=== PATIENT | male | born 1990 | race Caucasian/White ===

== ENCOUNTER 2021-03-18 22:57 | Emergency (ER) | payer OTHER, SELFPAY ==
[2021-03-18 23:01] VITALS: BP 142/69; PULSE 84; RESP 14; TEMP 36.3; O2SAT 100
[2021-03-19 01:56] VITALS: BP 126/79; PULSE 68; RESP 16; O2SAT 100
--- NOTE | 2021-03-19 02:46 | ED.GENADULT ---
HPI - General Adult General Chief complaint: Skin/Abscess/Foreign Body Stated complaint: suture removal, possible infection Time Seen by Provider: 03/19/21 02:17 History of Present Illness HPI narrative: Patient 30-year-old gentleman who presents the emergency department with chief complaint of redness to bilateral lower extremities. The patient reports he had a biopsy done by dermatology and the wounds were closed with a mattress type suture. Patient states that has noticed some redness around the sites and noticed that they have become infected. Patient also states that has been unable to have the sutures removed Related Data Allergies Allergy/AdvReac Type Severity Reaction Status Date / Time No Known Allergies Allergy Verified 03/19/21 01:55 Review of Systems Review of Systems: A 10 system review of systems was completed on the patient and is negative except for what is stated in the HPI. Nursing and ancillary documentation was reviewed. Exam Narrative: GENERAL: Well-appearing, well-nourished, and in no acute distress. HEAD: Normocephalic, atraumatic. EYES: PERRLA and EOMI. ENT: Nares clear, no rhinorrhea or epistaxis. Mucous membranes moist. NECK: Supple. CHEST: Clear to auscultation. No respiratory distress. HEART: Regular rate and rhythm. No murmur heard. Normal peripheral pulses. ABDOMEN: Soft, nontender, nondistended, normal active bowel sounds. EXTREMITIES: Normal range of motion. No edema. SKIN: Warm, dry, no rash. There is an area of erythema of pulse lower extremities approximately silver dollar size around the area of the biopsies. There is no purulent drainage sutures were still intact. Sutures were removed using a pair of scissors NEURO: No focal deficits. Alert and oriented x3. PSYCH: Normal mood and affect. Course Vital Signs Vital signs: Vital Signs Temperature 36.3 C L 03/18/21 23:01 Pulse Rate 84 03/18/21 23:01 Respiratory Rate 14 03/18/21 23:01 Blood Pressure 142/69 H 03/18/21 23:01 Pulse Oximetry 100 03/18/21 23:01 Temperature 36.3 C L 03/18/21 23:01 Pulse Rate 68 03/19/21 01:56 Respiratory Rate 16 03/19/21 01:56 Blood Pressure 126/79 03/19/21 01:56 Pulse Oximetry 100 03/19/21 01:56 Medical Decision Making Vital Signs Vital Signs: Vital Signs Temperature 36.3 C L 03/18/21 23:01 Pulse Rate 84 03/18/21 23:01 Respiratory Rate 14 03/18/21 23:01 Blood Pressure 142/69 H 03/18/21 23:01 Pulse Oximetry 100 03/18/21 23:01 Temperature 36.3 C L 03/18/21 23:01 Pulse Rate 68 03/19/21 01:56 Respiratory Rate 16 03/19/21 01:56 Blood Pressure 126/79 03/19/21 01:56 Pulse Oximetry 100 03/19/21 01:56 Discharge Plan Discharge Clinical Impression: Visit for suture removal Cellulitis Qualifiers: Site of cellulitis: extremity Site of cellulitis of extremity: lower extremity Laterality: unspecified laterality Qualified Code(s): L03.119 - Cellulitis of unspecified part of limb Patient Disposition: Home, Self-Care Condition: Stable Instructions: Antibiotic Form, Cellulitis (ED), Stitches Removal (ED) Prescriptions: New doxycycline hyclate 100 mg tablet 100 mg PO BID Qty: 14 RF: 0 Follow-up/Referrals: Dwayne Jones MD [Primary Care Provider] - Time of Disposition: 02:51
[2021-03-19] MEDS: DOXYCYCLINE HYCLATE 100 MG TABLET PO (03:07)
[2021-03-19 03:10] VITALS: BP 111/58; PULSE 72; RESP 17; O2SAT 100
== END 2021-03-19 03:11 | disposition home or self-care (01) ==
PROVIDERS: Emergency Provider Emergency Medicine; PCP Emergency Medicine
DX: T81.41XA Infection following a procedure, superficial incisional surgical site, initial encounter (principal); L03.116 Cellulitis of left lower limb; L03.115 Cellulitis of right lower limb
CPT/HCPCS: 99283; A9270

== ENCOUNTER → 2021-10-17 11:42 | Outpatient (CLI) | payer OTHER, SELFPAY ==
--- NOTE | ~2021-10-17 | US_ITS ---
US soft tissue abdomen DATE: 10/17/2021 12:06 INDICATION: Painful nodule, left lower quadrant of the abdomen TECHNIQUE: Real-time and color flow imaging targeted at area of clinical complaint of left lower quad rant lump COMPARISON: None FINDINGS: There is a smooth circumscribed oval parallel hypoechoic lesion with through transmission p osterior enhancement at the area of complaint at the left lower quadrant abdominal wall, measuring 2. 4 x 1.3 x 1.5 cm. IMPRESSION: Circumscribed parallel 2.4 x 1.3 x 1.5 cm subcutaneous likely complicated cyst, possibly sebaceous cyst Reviewed, dictated and finalized at [facility]. Reviewed, dictated and finalized at location B. IMPRESSION: Circumscribed parallel 2.4 x 1.3 x 1.5 cm subcutaneous likely compl icated cyst, possibly sebaceous cyst
== END ==
PROVIDERS: PCP Emergency Medicine; Visit Provider Emergency Medicine
DX: D17.9 Benign lipomatous neoplasm, unspecified (principal)
CPT/HCPCS: 76705

== ENCOUNTER 2021-11-29 01:53 | Day surgery (SDC) | payer OTHER, SELFPAY ==
[2021-11-20 16:56] VITALS: BMI 38.4
--- NOTE | 2021-11-20 17:19 | PC.NURSE ---
Report to the Outpatient Waiting Room, entrance under the green pavilion located off [facility], at 1300 on 11-29-21. OR Time: 1500. Time changes happen often and if your time is changed the preop area will call you the afternoon before. - You and your visitor will be asked to self-screen and do not enter if you have any COVID symptoms. - Only one visitor and NO children visitors are allowed at this time. - The patient visitor is requested to leave or wait in car when not with patient due to restrictions. - A mask is required within the hospital. Patients may have clear liquids (water, carbonated beverages, clear teas, apple juice) until 3 hours prior to surgery with a maximum of 20 ounces. 1200 - No food from midnight until time of surgery - Infants may have breast milk until 4 hours before surgery, formula 6 hours prior to surgery. - Children will be allowed to drink immediately following surgery. If applicable, please bring a bottle or sippy cup to assist with drinking. Juice, water, soda, and popsicles are readily available. For infants on formula, please bring formula the day of surgery. Pacifiers are allowed. Take the following medications with a SIP of water the morning of surgery: Adderall Medications to discontinue per physician: Vitamins and supplements Date to take last dose: 11-26-21 Please no make-up, nail yi, hairspray, perfume, deodorant, or body powder the day of surgery. No jewelry (including any body piercings) or valuables the day of surgery, leave them at home. Please take a shower or bath the night before, or the morning of, surgery with an antibacterial soap. Wear comfortable, loose fitting clothing. Children are encouraged to wear pajamas. - Jewelry must be removed prior to entering the operating room. Rings and piercings that are not removed may be cut off. - The hospital will not accept responsibility for valuables. - Please leave all valuables, including medications, at home the day of surgery. If you are going home after surgery, a licensed rickshaw driver must drive you home. - NO public transportation without another adult. - We recommend that an adult stay with you for 24 hours following discharge. - We also recommend that you do not drive, make important decision, drink alcoholic beverages, or take any drugs that were not prescribed by your health care provider for at least 24 hours after your discharge time. For Pediatric surgeries, we recommend two adults accompany the child home (only one inside the building at this time). Follow any additional instructions given to you from your surgeon. If you or anyone in your household have experienced Covid symptoms in the past week, please notify your surgeon or the nurse liaison at the phone number below for possible testing. Telephone instructions given to Suha Jackson and asked if any additional questions and then verbalized understanding. Patient advised to call surgeon office or pre surgery nurse liaison [phone] if any additional questions.
[2021-11-29 12:55] VITALS: BP 127/78; PULSE 81; RESP 18; TEMP 37; O2SAT 100
--- NOTE | 2021-11-29 13:19 | P.PNAN_ITS ---
Anes - Initial Pre Proc Eval Procedure: Operation Date: 11/29/21 15:00 Proposed Procedures p Excision of Left Lower Quadrant Abdominal Subcutaneous Mass - Hermilo Araujo MD Date/Time: 11/29/21 13:19 Surgeon: Hermilo Araujo MD Pre Op Diagnosis: LLQ abdominal subcutaneous mass Patient Data Age: 31 Gender: M Height: 1.75 m Weight: 117.93 kg Allergies Allergy/AdvReac Type Severity Reaction Status Date / Time No Known Allergies Allergy Verified 11/20/21 16:54 Home Medications Medication Instructions Recorded Confirmed Type dextroamphetamine-amphetamine 20 20 mg PO DAILY 11/07/21 11/20/21 History mg tablet (Adderall) pantoprazole 40 mg granules 40 mg PO DAILY 11/07/21 11/20/21 History delayed-release for susp in packet (Protonix) multivitamin with minerals-folic 1 tablet PO DAILY 11/20/21 11/20/21 History acid 0.4 mg tablet Patient hx anesthesia problems: none Family hx anesthesia problems: none Results Review: All pre-operative results and documents have been reviewed as part of the pre- operative evaluation. [facility] Past Medical History Medical History (Updated 11/09/21 @ 08:38 by Yola Nichols) ADD (attention deficit disorder) GERD (gastroesophageal reflux disease) Family History Family History Other Carcinoma of colon Social History Social History Smoking status: Never smoker Second hand tobacco smoke exposure: No Alcohol intake: never Substance use: never Substance use type: does not use Living arrangements: with family Spiritual care concerns: No Anes - Eval Final PreProcedure Day of Procedure 11/29/21 13:19 Patient weight: morbidly obese Heart: regular rate and rhythm Lungs: clear to auscultation Airway: Mallampati scale class II Neurological: alert and oriented Last oral intake: >/= 8 hours ASA classification: III Emergent: no Anesthetic plan: proceed Anesthesia type and monitoring: general GIVS and LMA and standard monitoring Results Review: All pre-operative results and documents have been reviewed as part of the pre- operative evaluation. Informed Consent: The patient's anesthetic plan and its attendant risks and benefits were discussed with the patient/family/POA. Questions were solicited and answers provided to the satisfaction of the patient/family/POA.
[2021-11-29] MEDS: LACTATED RINGERS 1,000 ML 30 ML IV CONT (13:30)
--- NOTE | 2021-11-29 14:38 | WPDHPUPDATE1 ---
History and Physical Update Update Date/Time: 11/29/21 14:38 History and Physical has been reviewed, including an updated exam of the patient. There are NO changes in the patient's condition. Risks, benefits, and alternatives have been discussed and questions answered. Patient agrees to proceed with procedure.
[2021-11-29 15:52] VITALS: BP 134/83; PULSE 89; RESP 12; O2SAT 98
[2021-11-29] MEDS: BUPIVACAINE/EPINEPHRINE 0.25% 50 ML VIAL 30 ML INFILTRATE (15:55)
--- NOTE | 2021-11-29 15:58 | W.PM.PROC2 ---
Procedure Note - Detailed Date of Procedure 11/29/21 Pre-op Diagnosis LLQ abdominal subcutaneous mass Post-op Diagnosis Same (Suspected deep epidermal cyst.) Procedure Performed Excision of skin lesion Surgeon Hermilo Araujo MD [employer] Mariely ASHRAF, OR first Ass.t Anesthesia Local Description of Procedure The patient was placed in the supine position. and rotated slightly to the right. After a surgical time out confirming patient and procedure the patient was prepped and draped in the usual sterile fashion. The cyst expose the area of the subcutaneous mass in the lower abdomen near the lower abdominal crease on the left the lesion had been marked preoperatively with the patient. I then carefully palpated the lesion and made a kirti over it. Subsequently local anesthetic using 0.25% Marcaine with epinephrine was administered subcutaneously. The lesion measured about 2.5 cm transversely and 2 cm vertically. Initially I carefully compressed it between the thumb and forefinger of my left hand and again making a direct incision over this with a 15 blade knife. Since it may be a lipoma I thought we we cut down to it and then cut around it if fat started a bubble out. However upon seen little bit of tissue that did not appear to be subcutaneous fat a tiny hole was made in what appeared to be an epidermal cyst and a small amount of grumous material squirted out this tiny 1 mm hole. Therefore, I stopped and more local anesthetic surrounding the area and I converted to an excision rather than just an incision. New incision was made above and below the palpable lesion.. An elliptical incision was made around the lesion taking a thin margin circumferentially Using a 15 blade knife. Then using Bovie cautery. I dissected down to the deep subcutaneous tissues and then completely excised the lesion. during this part we did not enter the cyst and we left a little bit of subcutaneous fat attached to it. The total of the Koul excision was 4 cm x 1 cm in size. The abnormality could be palpated within the subcutaneous tissues of the specimen. After removal I placed 1 long suture at the lateral corner of the lips and a short suture at superior edge of the ellipse. This was passed off the field for pathology. Carefully irrigated the wound and then began closure. Bleeding was controlled with electrocautery. The wound was closed in two layers. An un-dyed 2-0 vicryl deep dermal (Multiple interrupted buried sutures were used) and then a 3-0 undyed Monocryl running subcuticular closure was completed. Surgical glue applied as dressing. Patient tolerated this well. sponge needle instrument counts were correct at the end of the procedure. Implants none Estimated Blood Loss 2 Drains No Packing No Pathology Yes ( Elliptical excision of the subcutaneous mass which included skin and subcutaneous tissues.) Complications No immediate complications Condition Stable Disposition Same day [facility] Billing Surgery - Charge Forward: Surgery Billing ( Elliptical excision of subcutaneous mass (suspected epidermal cyst))
[2021-11-29 16:00] VITALS: BP 130/86; PULSE 93; RESP 16; O2SAT 98
[2021-11-29 16:22] VITALS: BP 107/71; PULSE 74; RESP 12
== END 2021-11-29 16:50 | disposition home or self-care (01) ==
PROVIDERS: PCP Emergency Medicine; Visit Provider Surgery
PROC: (CPT 11404; principal; 2021-11-29 15:00)
DX: L72.0 Epidermal cyst (principal); F98.8 Other specified behavioral and emotional disorders with onset usually occurring in childhood and adolescence; K21.9 Gastro-esophageal reflux disease without esophagitis; E66.01 Morbid (severe) obesity due to excess calories; Z68.38 Body mass index [BMI] 38.0-38.9, adult
CPT/HCPCS: 11404; 12032; 88304; J0690; J1100; J1885; J2250; J2704; J3010; J7120

== ENCOUNTER 2023-03-09 16:41 | Emergency (ER) | payer OTHER, SELFPAY ==
--- NOTE | ~2023-03-09 | CT_ITS ---
EXAMINATION: CT abdomen pelvis w con DATE: 03/09/2023 21:00 INDICATION: left flank pain, abdominal pain TECHNIQUE: Computed tomography (CT) of the abdomen and pelvis was performed with 100 mL Omnipaque-350 intravenous contrast. Automated exposure control and iterative reconstruction technique were employe d. The dose-length product was 1834.95 mGy-cm. COMPARISON: None. FINDINGS: Lower thorax: Unremarkable Liver: Diffuse fatty infiltration Biliary/Gallbladder: Gallbladder is normal. No bile duct dilation. Pancreas: No mass or duct dilation. Spleen: Normal. Adrenals:No mass. Kidneys: No suspicious mass, obstructing stone, or hydronephrosis. Punctate left midpole nonobstructi ng calcification. Hyperdensity of the renal pyramids, may relate to phase of contrast excretion or me dullary nephrocalcinosis. GI tract: No small or large bowel dilation. Normal appendix. Mesentery/Peritoneum: No ascites, mass, or free air. Retroperitoneum: No mass. Pelvis: The bladder is partially decompressed. Punctate hyperdensity in the distal left UVJ. Soft Tissues: Soft tissues and body wall unremarkable. Bones: No acute osseous finding. IMPRESSION: Hepatic steatosis. Punctate hyperdensity in the distal left UVJ may represent a distal UVJ stone, without significant ob structive uropathy. Otherwise no acute abdominal pelvic process detected Reviewed, dictated and finalized at location K. MACHINE OPERATOR IMPRESSION: Hepatic steatosis. Punctate hyperdensity in the distal left UVJ may represent a distal UVJ stone, without significant obstructive uropathy. Otherwise no acute abdominal pelvic process detected
[2023-03-09 16:48] VITALS: BP 169/91; PULSE 105; RESP 18; TEMP 36.4; O2SAT 100
--- NOTE | 2023-03-09 18:54 | ED.BACK ---
HPI - Back Pain/Injury General Chief Complaint: Back Pain/Injury Stated Complaint: lower left back pain Time Seen by Provider: 03/09/23 18:54 History of Present Illness HPI Narrative: Patient is a 32 year old male with no PMH here today with left lower back/flank pain. He notes that symptoms began this morning started on the left flank which is non radiating. He notes that it made him immediately feel like he needed to defecate and urinate. No blood in urine or stool. No dysuria. He did both of these and seemed to have some improvement of symptoms at that time. He has had intermittent pain since that time. Notes he has taken Excedrin at home with some symptom improvement at home. He denies any trauma. No history of kidney stone. He notes he had an episode of vomiting earlier today when symptoms began, no current nausea. Related Data Home Medications Medication Instructions Recorded Confirmed dextroamphetamine-amphetamine 20 20 mg PO DAILY 11/07/21 11/20/21 mg tablet (Adderall) pantoprazole 40 mg granules 40 mg PO DAILY 11/07/21 11/20/21 delayed-release for susp in packet (Protonix) multivitamin with minerals-folic 1 tablet PO DAILY 11/20/21 11/20/21 acid 0.4 mg tablet Allergies Allergy/AdvReac Type Severity Reaction Status Date / Time No Known Allergies Allergy Verified 03/09/23 16:43 Review of Systems Review of Systems: All systems reviewed & are unremarkable except as noted in HPI and below PMFSH Past Medical History Medical History (Updated 03/09/23 @ 21:29 by Moni Corrigan MD) ADD (attention deficit disorder) GERD (gastroesophageal reflux disease) Surgical History Surgical History (Updated 12/13/21 @ 08:49 by Abiola Sawyer) H/O excision of epidermal inclusion cyst 11/29/2021 Family History Family History Other Carcinoma of colon Social History Social History Smoking status: Never smoker Second hand tobacco smoke exposure: No Alcohol intake: never Substance use: never Substance use type: does not use Living arrangements: with family Spiritual care concerns: No Exam Narrative: GENERAL: Well-appearing, well-nourished, and in no acute distress. HEAD: Normocephalic, atraumatic. EYES: PERRLA and EOMI. ENT: Nares clear. Mucous membranes moist. NECK: Supple. CHEST: Clear to auscultation. No respiratory distress. HEART: Regular rate and rhythm. Normal peripheral pulses. ABDOMEN: L CVA tenderness, Soft, nontender, nondistended. EXTREMITIES: Normal range of motion. No edema. No midline lumbar tenderness. SKIN: Warm, dry, no rash. NEURO: No focal deficits. Alert and oriented x3. PSYCH: Normal mood and affect. Course Course Emergency Course: Chart review performed. Patient here for left lower back pain, nausea, vomiting. Triage vitals show HTN, tachycardia, afebrile. Patient seen and evaluated, non toxic appearing. Will do basic lab work, UA, CT abdomen pelvis to evaluate for possible stone vs intraabdominal infectious process. Patient has a ride, will do morphine and zofran for symptoms. WBC 11.4, renal function normal, electrolytes normal. Urine shows no UTI, 2+ blood, 21-[address] shows punctate hyperdensity at distal left UVJ without hydronephrosis. Will start patient on ibuprofen, Flomax and refer to Urology. The results of pertinent diagnostic studies and exam findings were discussed. The patient?s provisional diagnosis and plan of care were discussed with the patient and present family. The patient and/or present family expressed understanding of the diagnosis and plan. The nurse was instructed to provide written instructions and appropriate follow-up information. The patient understands their need and responsibility to obtain additional follow-up as instructed. The risks of medications administered and prescribed were discussed with dean
[2023-03-09] MEDS: ONDANSETRON INJ 4 MG/2 ML VIAL IV PUSH (20:06)
[2023-03-09] MEDS: MORPHINE SULFATE (*CRX) 4 MG/ML INJ IV PUSH (20:06)
[2023-03-09 20:19] VITALS: BP 125/83; PULSE 76; RESP 17; O2SAT 100
[2023-03-09 20:20] LABS: Basophils Absolute Auto 0.1 K/mm3 (0.0-0.1); Basophils Percent Auto 0.4 % (0.2-1.2); Eosinophils Percent Auto 0.1 % (0-4.4); Hematocrit 41.3 % (42.0-52.0); Hemoglobin 13.4 g/dL (14.0-18.0); Immature Granulocyte Absolute 0.05 K/mm3 (0.00-0.031); Immature Granulocyte Percent A 0.4 % (0-0.5); Lymphocytes Absolute Auto 1.68 K/mm3 (0.9-3.2); Lymphocytes Percent Auto 14.7 % (18.3-44.2); Mean Corpuscular HGB Conc 32.4 g/dl (32-36); Mean Corpuscular Hemoglobin 29.6 pg (26-34); Mean Corpuscular Volume 91.4 fl (80-100); Mean Platelet Volume 9.4 fl (7.4-10.4); Monocytes Absolute Auto 0.6 K/mm3 (0.1-0.6); Monocytes Percent Auto 5.5 % (2.6-8.5); Neutrophils Percent Auto 78.9 % (45.5-73.1); Platelet Count Result 321 k/mm3 (150-375); Red Blood Count 4.52 M/mm3 (4.6-6.20); Red Cell Distribution Width 12.8 % (11.5-14.5); White Blood Count 11.4 K/mm3 (4.5-10.0)
[2023-03-09 20:31] LABS: Alanine Aminotransferase 39 U/L (6-50); Albumin Level 4.6 g/dL (3.5-5.1); Alkaline Phosphatase 80 U/L (38-126); Anion Gap 8 mmol/L (8-16); Aspartate Amino Transferase 27 U/L (17-59); Bilirubin,Total 0.6 mg/dL (0.2-1.3); Blood Urea Nitrogen 15 mg/dL (9-20); Calcium 9.3 mg/dL (8.4-10.2); Carbon Dioxide 29 mmol/L (22-30); Chloride 103 mmol/L (98-107); Estimated CRCL calculation 106 ml/min; Estimated Glomerular Filt Rate > 60; Glucose 102 mg/dL (65-110); Potassium 4.1 mmol/L (3.4-5.0); Sodium 140 mmol/L (137-145)
[2023-03-09 20:56] LABS: Appearance Urine Clear (Clear); Bacteria Urine None Seen /hpf; Bilirubin Urine Negative (Negative); Blood Urine 2+ (Negative); Color Urine Yellow (Yellow); Glucose Urine UA Negative (Negative); Ketones Urine Negative (Negative); Leukocyte Esterase Ur Negative LEU/UL (Negative); Nitrate Urine Negative (Negative); Non Pathogenic Casts 0-2; Protein Urine Trace mg/dL (Negative); RBC Urine 21-50 /hpf (0-2); Specific Grav Ur 1.022 (1.001-1.035); Squamous Epithelial Cell Urine None seen /hpf (Few); WBC Urine 0-5 /hpf; pH Urine 8.5 (5.0-9.0)
[2023-03-09 21:00] LABS: Add Urine Microscopic? YES
== END 2023-03-09 21:55 | disposition home or self-care (01) ==
PROVIDERS: Emergency Provider Student in an Organized Health Care Education/Training Program; PCP Emergency Medicine
DX: N20.1 Calculus of ureter (principal); F98.8 Other specified behavioral and emotional disorders with onset usually occurring in childhood and adolescence; K21.9 Gastro-esophageal reflux disease without esophagitis; K76.0 Fatty (change of) liver, not elsewhere classified
CPT/HCPCS: 36415; 74177; 80053; 81001; 85025; 96374; 96375; 99284; J2270; J2405; Q9967

== ENCOUNTER 2024-01-21 12:24 | Outpatient (CLI) | payer OTHER, SELFPAY ==
--- NOTE | ~2024-01-21 | XR_ITS ---
3 VIEWS LUMBAR SPINE Ordering provider: Dwayne Jones MD History: . fall yesterday on ice, LBP with spasms . Comparison: None. FINDINGS: VERTEBRAL BODIES: No visible fracture or subluxation. DISK SPACES: Slight narrowing of the disc L2-L3. SOFT TISSUES: Normal. IMPRESSION: No acute osseous abnormality lumbar spine. Slight narrowing of the disc L2-L3. Reviewed, dictated and finalized at location A. ACCEPTANCE TESTER
== END 2024-01-21 12:25 | disposition home or self-care (01) ==
PROVIDERS: PCP Emergency Medicine; Visit Provider Emergency Medicine
DX: M62.830 Muscle spasm of back (principal)
CPT/HCPCS: 72100

== ENCOUNTER 2024-03-17 00:50 | Day surgery (SDC) | payer OTHER, SELFPAY ==
[2024-03-10 15:30] VITALS: BMI 39.1
--- OUTSIDE RECORDS SUMMARY | 2024-03-17 00:54 | XMS_ITS | Clinical Summary ---
Author Organization [address] Address [address] [place] [address] Care Team Providers Care Truck Hopper Name Role Phone Dwayne Jones MD Primary Care Provider [phone] Allergies No known active allergies Medications dextroamphetami ne-amphetamine (ADDERALL) 20 mg tablet take 20 mg in AM and 10 mg around 1 pm 2 Active mupirocin (BACTROBAN) 2 % ointmentIndicat ions:Skin tag Apply topically 3 (three) times a day 22 g 2 Active Active Problems No known active problems Surgical History Surgery Date Site/Laterality Comments NO PAST SURGERIES Medical History Medical History Date Comments ADHD (attention deficit hyperactivity disorder) Family History Relation Name Status Comments Father Alive Mother Alive Social History Tobacco Use Types Packs/Day Years Used Date Smoking Tobacco: Never Smokeless Tobacco: Never Personal Safety Answer Date Recorded Getting School Help Needed Not on file 04/09 Sex and Gender Information Value Date Recorded Sex Assigned at Not on file Legal Sex Male 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 Gender Identity Not on file Sexual Orientation Not on file Obstetrics History Last Filed Vital Signs Vital Sign Reading Time Taken Comments Blood Pressure 110/80 10/08/2021 5:29 PM CDT Pulse 110 10/08/2021 5:29 PM CDT Temperature 36.7 ??C (98.1 ??F) 10/08/2021 5:29 PM CD T Respiratory Rate 20 10/08/2021 5:29 PM CDT Oxygen Saturation 98% 10/08/2021 5:29 PM CDT Inhaled Oxygen Concentration - - Weight 118.2 kg (260 lb 9.6 oz) 10/08/2021 5:29 PM CDT Height 175.3 cm (5' 9 ) 10/08/2021 5:29 PM CDT Body Mass Index 38.48 10/08/2021 5:29 PM CDT Plan of Treatment Health Maintenance Due Date Last Done Comments Depression Screening 1990 Hepatitis C Screening 1990 DTaP/Tdap/Td Vaccine (5 - Tdap) 2001 04/21/1992, 06/04/1991, 03/26/1991, Additional history exists Varicella Vaccines (1 of 2 - 13+ 2-dose series) 11/02/2003 Hepatitis B Screening 2008 Regular Well Visit/Exam 18-64 2008 Influenza Vaccine (#1) 2023 HPV Vaccines Aged Out No longer eligi ble based on patient's age to complete this topic Pneumococcal vaccine <65 Aged Out No longer eligible based on patient's age to complete this topic Insurance [facility] [id number] Care Teams Truck Hopper Relationship Specialty Start Date End Date Dwayne Jones MD [address] [place] [address] PCP - General Family Medicine 03/18/21
--- OUTSIDE RECORDS SUMMARY | 2024-03-17 00:54 | XMS_ITS | Data Portability ---
Author Organization [facility], Main Office Address [address] [place] [address] Assessment Encounter Date Assessment Date Assessment LastModified by Organization Details LastModified Time 09/18/2023 09/18/2023 Time spent with patient included: preparing to see patient by reviewing tests, obtaining and reviewing history, medical examination and evaluation, counseling and educating the patient, ordering medications and tests, documenting clinical information in EHR, independently interpreting results and communicating results to the patient for a total of 46 minutes. [email or web address] Not available 09/18/2023 10:50:18 Plan of Treatment Reminders Order Date Submit Date Provider Last Modified By Organization Details Last Modified Time Details Appointments None record ed. Lab None record ed. Referral None record ed. Procedures None record ed. Surgeries None record ed. Imaging None record ed. Medication Orders None record ed. Patient TargetsNo targets recorded. Patient InstructionsNo instructions recorded. Reason for Referral None Reported. Problems Name Problem SNOMED Code Status Onset Date Resolution Date Notes Provider Name and Address Organization Details Recorded Time Obstructive sleep apnea syndrome 11080411 Active 024 Ellen Olivares NP [address] [facility] [address], [place], [address] [facility] 10:35:56 Problem Notes None recorded. Procedures Surgical History Date Name Laterality Status Provider Name and Address Organization Details Recorded Time excision of lipoma completed Arti Pinto MA [facility] 09/18/2023 10:03:06 Imaging Results None recorded. Procedure Notes None recorded. Medical Equipment None Reported. Medications Name Sig Start Date Stop Date Status Note LastModified by Organization Details LastModified Time amoxicillin 500 mg capsule TAKE ONE CAPSULE FOUR TIMES DAILY FOR 7 DAYS 2023 active Not Available Not Available Not Avai lable tamsulosin 0.4 mg capsule TAKE 1 CAPSULE BY MOUTH EVERY DAY 09/17 completed Not Available Not Available Not Available pantoprazol e 40 mg tablet,srikanth yed release TAKE 1 TABLET BY MOUTH EVERY DAY 09/17 completed Not Available Not Available Not Available ibuprofen 600 mg tablet TAKE 1 TABLET BY MOUTH EVERY 6 HOURS NEEDED FOR PAIN 09/17 completed Not Available Not Available Not Available ondansetron 4 mg disintegrat ing tablet DISSOLVE 1 TABLET ON THE TONGUE EVERY 8 HOURS NEEDED FOR NAUSEA OR VOMITING 09/17 completed Not Available Not Available Not Available bupropion HCl XL 150 mg 24 hr tablet, extended release TAKE ONE TABLET EVERY MORNING active Not Available Not Available No t Available Vitals Date Recorded Body height Body mass index (BMI) Body weight Body temperature Heart rate Oxygen saturation Oxygen saturation in Arterial blood by Pulse oximetry Systolic blood pressure Diastolic blood pressure Provider Name and Address Organization Details Last Updated DateTime 175.26 cm 44 kg/m2 359410. 53 g 97.6 [degF] 75 /min 97 % 97 % 118 mm[Hg] 76 mm[Hg] Arti Pinto MA [facility] 10:05:21 Social History Question Answer Notes LastModified by Organizat ion Details LastModified Time Tobacco Smoking Status Never Smoker Arti Pinto MA [facility] 09/18/2023 10:01:33 What Is Your Level Of Alcohol Consumption? None Information not available 09/18/2023 What Is Your Level Of Caffeine Consumption? Moderate Information not available 09/18/2023 In The 14 Days Before Symptom Onset, Have You Had Close Contact With A Laboratory-confir med COVID-19 While That Case Was Ill? No Information not available 09/18/2023 In The 14 Days Before Symptom Onset, Have You Had Close Contact With A Person Who Is Under Investigation For COVID-19 While That Person Was Ill? No Information not available 09/18/2023 Are You Currently Employed? Yes Information not available 09/18/2023 What Type Of Diet Are You Following? 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 Unknown Information not available 09/18/2023 Do You Use Insect Repellent Routinely? No Information not available 09/18/2023 What Was The Date Of Your Most Recent Tobacco Screening? 09/18/2023 Information not available 09/18/2023 Do You Have Any Pets? Yes Information not available 09/18/2023 Do You Use Your Seat Belt Or Car Seat Routinely? Yes Information not available 09/18/2023 Do You Have Smoke And Carbon Monoxide Detectors In Your Home? Yes Information not available 09/18/2023 Are You Passively Exposed To Smoke? No Information no t available 09/18/2023 Are There Any Smokers In Your House? No Information not available 09/18/2023 Do You Participate In Social [employer]? Yes Information not available 09/18/2023 Do You Feel Stressed (tense, Restless, Nervous, Or Anxious, Or Unable To Sleep At Night)? [id number] Information not available 09/18/2023 Do You Use Any Illicit Or Recreational Drugs? No Information not available 09/18/2023 Do You Use Sunscreen Routinely? No Information not available 09/18/2023 Have You Recently Traveled Abroad? No Information not available 09/18/2023 Do You Have Any Dietary Restrictions? No Information not available 09/18/2023 Sex: Unknown Functional Status Question Answer Note LastModified by Organizat ion Details LastModified Time What is your exercise level? Occasional Information not available 09/18/2023 Mental Status None recorded. Family History Nothing Reported. Medical History No medical history recorded. Past Encounters Encounter ID Performer Location Encounter Start Date Encounter Closed Date Diagnosis/Indication Diagnosis SNOMED-CT Code Diagnosis ICD10 Code Diagnosis Note [id number] Ellen Olivares NP [facility] Pulmonolo gy [address] [address] 09/18/2023 09:47:03 09/19/2023 09:00:58 Obstructive sleep apnea syndrome 44666436 G47.33 PAP compliance downloaded and interprete d x 20 minutes. Uses Airsense 11-with nasal pillow-aut o titration of 5-20-used for > 4 hours, 98% of timeData reviewed and explained to the patient.Av erage apnea/hypo pnea index (AHI) is 2.3no leakage presentPAP is set at 11 cmH2O.PAP will remain at 11 cmH2O.Maru ent is benefiting from PAP therapy.En couraged patient to maintain PAP use 100% of the time.State ment of PAP use and benefits will be sent to the home care store if needed-per patient they send his equipment without any issues at this time. He is aware that if this changes let us know and we will be glad to send to the company.I do feel that the grogginess during daytime is related to poor sleep hygiene and less hours of sleep on work days. We discussed this and the importance of sleep hygiene and the need for 7-8 hours a sleep a night. HIs AHI is wnl and he is using the CPAP like he should with no air leaks so do not feel it is CPAP related.En courage weight loss which also helps with sleep apnea-not eating prior to bedtime by 3-4 hours Health Concerns Section Related Observation LastModified by Organization Detai ls LastModified Time None Recorded Concern Status LastModified by Organization Details LastModified Time None Recorded Advance Directives Directive None Recorded Payers Encounter Date Sequence Insurance Name Policy Number Policy Diaz Covered Member ID Diaz Member ID Guarantor Name 09/18/2023 1 [facility] Eduardo Jackson [id number] OI Eduardo Jackson Notes Date Note Type Note Provider Name and Address Organization Details Recorded Time 09/18/2023 text/html Sleep ProblemsRe ported bypatient.Hand Dominance:right General Sleep:no snoring; no medical transcription editor headache;sleep apnea;insomnia: difficulty falling asleep;excessive sleepiness during the day (daytime somnolence) Onset/Timing:hx of ELIGIO x 2 years Severity:does not interfere with daily activities; no drowsiness while driving; drowsiness not affecting work;difficulty getting going in the morning Quality:no gasping for air; no hyponasal speech; no frequent breathing through the mouth; improving;loud snoring Location of sleep apnea:no enlarged tonsils; no nasal passage blockage; no throat pain; no feeling of tightness in throat; no dryness of mouth; no chest congestion Restless leg syndrome:jerking in sleep Narcolepsy Symptoms:no cataplexy Prescribed sleep medications:not taking medication to help sleep CPAP:uses CPAP every night Associated Symptoms:no sleep problems; no hypertension; no history of stroke; no heart disease; no automobile accidents as a result of sleepiness; no increased motor activity at night; does not act out dreams; no history of sleep disorder; no family history of sleep disorder; no restless leg symptoms; good sleep hygiene;poor sleep hygiene; previous sleep study abnormal; epworth sleepiness scale total score (12)Notes:He notes that on work nights he is in bed at 9 and is usually asleep by 10-10:30 and sets an alarm for 5 and gets up at 5:30 and has a hard time getting going- on days off he gets 8+ hours of sleep and feels refreshed and is not groggy through the day. Ellen Olivares NP [address] [facility] [place] [address], [place], [address], [place] [facility] 09/18/2023 14:06:15
--- OUTSIDE RECORDS SUMMARY | 2024-03-17 00:54 | XMS_ITS | Encounter Summary ---
Author Organization [facility] Address [address] [place] [address] Phone Care Team Providers Care Agriculture Laboratory Technician Name Role Phone Dwayne Jones Primary Care Provider [phone] Paul Tim MD Unavailable Encounter Details Date Type Department Care Team (Late st Contact Info) Description 12/29/2020 Telephone [facility] [id number] [address] Paul Tim MD [address] [place] [phone] Social History Tobacco Use Types Packs/Day Years Used Date Smoking Tobacco: Never Smokeless Tobacco: Never Alcohol Use Standard Drinks/Week Comments Not Currently 0 (1 standard drink = 0.6 oz pur e alcohol) PHQ-2 Answer Date Recorded Total Score - Questions 1-9 0 10/0 08/2020 Sexually Active Control Partners Comments Not Currently Sex and Gender Information Value Date Recorded Sex Assigned at Not on file Legal Sex Male 7:47 AM CDT Gender Identity Not on file Sexual Orientation Not on file documented as of this encounter Miscellaneous Notes * Telephone Encounter - Abiola Gaines Sanjay - 12/29/2020 9:36 AM CST Images from the original note were not included. Paul Tim MD You 5 minutes ago (9:30 AM) MW That's ok Message text C ILLUSTRATOR * Telephone Encounter - Abiola Gaines - 12/29/2020 9:19 AM CST SPOKE TO THE PT AND THE SOONEST THEY WOULD GIVE HIM WITH DERM WAS 02/23/21. C ILLUSTRATOR documented in this encounter Plan of Treatment Upcoming Encounters Date Type Department Care Team (Late st Contact Info) Description 12/17/2024 11:00 AM CDT Office Visit [facility] [address] [place] [address] Ben Rodriguez Jr., MD [address] [facility] [address] [place] [address] documented as of this encounter Visit Diagnoses Not on filedocumented in this encounter Additional Health Concerns Assessment Noted Time PHQ-9 Depression Total Score: 0 11/25/19 21 10:19 AM CDT documented as of this encounter Care Teams Agriculture Laboratory Technician Relationship Specialty Start Date End Date Dwayne Jones [address] [facility] [place] [address] PCP - General Family Medicine 10/19/20 Paul Tim MD [address] [facility] [address] Consulting Physician Oncology 10/19/20 documented as of this encounter
--- OUTSIDE RECORDS SUMMARY | 2024-03-17 00:54 | XMS_ITS | Clinical Summary ---
Author Organization [facility] Address [address] [place] [address]. [place] [address] [place] [address] Care Team Providers Care Academic Support Director Name Role Phone None, Provider Primary Care Provider Mayra ble Encounters Date Type Department Care Team Description 02/06/2024 11:42 AM RES HABILITATION ASSISTANT - 02/06/2024 11:59 PM RES HABILITATION ASSISTANT Hospital Encounter [facility] [address] [place] [address] Paul Tim MD Discharge Disposition: Home or Self Care (Routine Discharge) 02/06/2024 Orders Only [facility] [address] [place] [address] Paul Tim MD from Last 3 Months Social History Tobacco Use Types Packs/Day Years Used Date Smoking Tobacco: Never Assessed Sex and Gender Information Value Date Recorded Sex Assigned at Not on file Legal Sex Male 5:03 PM CDT Gender Identity Not on file Sexual Orientation Not on file Plan of Treatment Health Maintenance Due Date Last Done Comments Annual Physical 1993 DTaP, Tdap and Td Vaccines ( 1 - Tdap) 2009 Hepatitis B Vaccines (1 of 3 - 19+ 3-dose series) 2009 COVID-19 Vaccine (2023-2 5 season) 2023 Influenza Adult (#1) 2023 Hepatitis C Completed 11/10/2020, 09/17/2018, 07/24/2018 HPV Vaccines Aged Out No longer eligi ble based on patient's age to complete this topic Meningococcal B Vaccine Aged Out No l onger eligible based on patient's age to complete this topic Meningococcal Vaccine Aged Out No robert ca eligible based on patient's age to complete this topic Pneumococcal Vaccine: Pediatrics (0 to 5 Years) and At-Risk Patients (6 to 64 Years) Aged Out No longer eligible b ased on patient's age to complete this topic RSV Immunizations Under 20 Months Aged Out No longer eligible b ased on patient's age to complete this topic Procedures Procedure Name Priority Date/Time Associated Diagnosis Comments CBC W/DIFF AUTOMATED Routine 02/06/2024 11:43 AM RES HABILITATION ASSISTANT HSP (Henoch Schonlein purpura) ([facility]) Iron deficiency anemia, unspecified COMPREHENSIVE METABOLIC PANEL Routine 02/06/2024 11:43 AM RES HABILITATION ASSISTANT HSP (Henoch Schonlein purpura) ([facility]) Iron deficiency anemia, unspecified LDH, LACTATE DEHYDROGENASE Routine 02/06/2024 11:43 AM RES HABILITATION ASSISTANT HSP (Henoch Schonlein purpura) ([facility]) Iron deficiency anemia, unspecified MAGNESIUM Routine 02/06/2024 11:43 AM RES HABILITATION ASSISTANT HSP (Henoch Schonlein purpura) ([facility]) Iron deficiency anemia, unspecified SED RATE, ERYTHROCYTE (ESR) Routine 02/06/2024 11:43 AM RES HABILITATION ASSISTANT HSP (Henoch Schonlein purpura) ([facility]) Iron deficiency anemia, unspecified VITAMIN B12 / FOLATE Routine 02/06/2024 11:43 AM RES HABILITATION ASSISTANT HSP (Henoch Schonlein purpura) ([facility]) Iron deficiency anemia, unspecified IRON SAT PANEL (IRON,IBC,%SAT) Routine 02/06/2024 11:43 AM RES HABILITATION ASSISTANT HSP (Henoch Schonlein purpura) ([facility]) Iron deficiency anemia, unspecified RETICULOCYTE CT, AUTO Routine 02/06/2024 11:43 AM RES HABILITATION ASSISTANT HSP (Henoch Schonlein purpura) ([facility]) Iron deficiency anemia, unspecified FERRITIN Routine 02/06/2024 11:43 AM RES HABILITATION ASSISTANT HSP (Henoch Schonlein purpura) ([facility]) Iron deficiency anemia, unspecified TESTOSTERONE, TOTAL Routine 02/06/2024 1 1:43 AM RES HABILITATION ASSISTANT HSP (Henoch Schonlein purpura) (CMS/HCC) Iron deficiency anemia, unspecified HEPATITIS C ANTIBODY Routine 11/10/2020 11:20 AM CDT Henoch Schonlein syndrome from Last 3 Months or Most Recently Relevant to Health Maintenance Results * VITAMIN B12 / FOLATE (02/06/2024 11:43 AM RES HABILITATION ASSISTANT) VITAMIN B12 S/P/B 401 193 - 986 PG/ML 02/06/2024 12:41 PM RES HABILITATION ASSISTANT [facility] FOLATE 11.4 8.6 - 58.9 NG/ML 02/06/2024 12:41 PM RES HABILITATION ASSISTANT [facility] 02/06/2024 11:4 3 AM RES HABILITATION ASSISTANT us Paul Tim MD LABORATORY Final Resul t Performing Organization Address City/[facility]/ZIP Co de Phone Number [facility] [address] [place] [address], [place] [phone] * IRON SAT PANEL (IRON,IBC,%SAT) (02/06/2024 11:43 AM RES HABILITATION ASSISTANT) IRON 73 65 - 175 MCG/DL 02/06/2024 12:14 PM RES HABILITATION ASSISTANT [facility] IRON BINDING CAPACITY 348 250 - 450 MCG/DL 02/06/2024 12:14 PM RES HABILITATION ASSISTANT [facility] IRON SATURATION 21 20 - 55 % 12:14 PM RES HABILITATION ASSISTANT [facility] 02/06/2024 11:4 3 AM RES HABILITATION ASSISTANT us Paul Tim MD LABORATORY Final Resul t [facility] [address] [place] [address], [place] [phone] * RETICULOCYTE CT, AUTO (02/06/2024 11:43 AM RES HABILITATION ASSISTANT) Pathologist [facility] RETICULOCYTE COUNT 1.0 0.5 - 1.5 % 02/06/2024 11:48 AM RES HABILITATION ASSISTANT [facility] 02/06/2024 11:4 3 AM RES HABILITATION ASSISTANT us Paul Tim MD LABORATORY Final Resul t [facility] [address] [place] [address], [place] [phone] * (ABNORMAL) SED RATE, ERYTHROCYTE (ESR) (02/06/2024 11:43 AM RES HABILITATION ASSISTANT) Pathologist [facility] ESR 29(H) 0 - 15 MM/HR 02/06/2024 1:17 PM RES HABILITATION ASSISTANT [facility] 02/06/2024 11:4 3 AM RES HABILITATION ASSISTANT us Paul Tim MD LABORATORY Final Resul t Performing Organization Address City/[facility]/ZIP Co de Phone Number [facility] [address] [place] [address], [place] [phone] * (ABNORMAL) COMPREHENSIVE METABOLIC PANEL (02/06/2024 11:43 AM RES HABILITATION ASSISTANT) Pathologist [facility] GLUCOSE 95 70 - 99 MG/DL 02/06/2024 12:52 PM RES HABILITATION ASSISTANT [facility] BUN 10 7 - 18 MG/DL 02/06/2024 12:52 PM [facility] CREATININE S/P/B 1.52(H) 0.7 - 1.3 MG/DL 02/06/2024 12:52 PM RES HABILITATION ASSISTANT [facility] SODIUM S/P/B 142 136 - 145 MMOL/L 02/06/2024 12:52 PM [facility] POTASSIUM S/P/B 4.2 3.5 - 5.1 MMOL/L 02/06/2024 12:52 PM [facility] CHLORIDE S/P/B 104 100 - 108 MMOL/L 02/06/2024 12:52 PM [facility] CO2 30.3 21 - 32 MMOL/L 02/06/2024 12:52 PM [facility] CALCIUM S/P/B 9.5 8.5 - 10.1 MG/DL 02/06/2024 12:52 PM [facility] BILIRUBIN TOTAL S/P/B 0.5 0.2 - 1.2 MG/DL 02/06/2024 12:52 PM [facility] TOTAL PROTEIN S/P/B 7.3 6.4 - 8.2 G/DL 02/06/2024 12:52 PM [facility] ALBUMIN S/P/B 4.0 3.4 - 5.0 G/DL 02/06/2024 12:52 PM [facility] AST 29 15 - 37 U/L 02/06/2024 12:52 PM [facility] ALT 38 16 - 60 U/L 02/06/2024 12:52 PM [facility] ALKALINE PHOSPHATASE S/P/B 89 50 - 136 U/L 02/06/2024 12:52 PM [facility] ANION GAP 7.7 5 - 15 MMOL/L 02/06/2024 12:52 PM [facility] BUN CREATININE RATIO 6.6 6 - 26 02/06/2024 12:52 PM [facility] A/G RATIO 1.2 1.0 - 2.0 RATIO 02/06/2024 12:52 PM RES HABILITATION ASSISTANT [facility] GFR ESTIMATE 62(L) >90 ML/MIN/1.7 3 M2 02/06/2024 12:52 PM [facility] Comment: NOTE: eGFR is not calculated for patients <18 years of age. This is an estimated GFR calculation using the new CKD EPI creatinine equation without race and so does not require a correction factor for race. This estimated GFR should not be used for calculating drug doses. 02/06/2024 11:4 3 AM RES HABILITATION ASSISTANT us Paul Tim MD LABORATORY Final Resul t Performing Organization Address City/[facility]/ZIP Co de Phone Number [facility] [address] [place] [address], [place] [phone] * LDH, LACTATE DEHYDROGENASE (02/06/2024 11:43 AM RES HABILITATION ASSISTANT) LDH 145 87 - 241 UNITS/L 02/06/2024 12:52 PM RES HABILITATION ASSISTANT [facility] 02/06/2024 11:4 3 AM RES HABILITATION ASSISTANT us Paul Tim MD LABORATORY Final Resul t Performing Organization Address [facility]/ZIP Co de Phone Number [facility] [address] [place] [address], [place] [phone] * CBC W/DIFF AUTOMATED (02/06/2024 11:43 AM RES HABILITATION ASSISTANT) WBC 8.13 4.4 - 11.0 x10'3/uL 02/06/2024 11:48 AM RES HABILITATION ASSISTANT [facility] RBC 4.68 4.50 - 5.90 x10'6/uL 02/06/2024 11:48 AM RES HABILITATION ASSISTANT [facility] HGB 14.4 14.0 - 17.5 G/DL 02/06/2024 11:48 AM [facility] HCT 42.3 41.5 - 50.4 % 02/06/2024 11:48 AM [facility] MCV 90.4 80.0 - 96.0 FL 02/06/2024 11:48 AM [facility] MCH 30.8 26.5 - 31.4 PG 02/06/2024 11:48 AM [facility] MCHC 34.0 31.9 - 34.8 G/DL 02/06/2024 11:48 AM [facility] RDW 13.5 12.3 - 14.3 % 02/06/2024 11:48 AM [facility] PLT 287 151 - 353 x10'3/uL 02/06/2024 11:48 AM [facility] MPV 9.8 9.7 - 11.9 FL 02/06/2024 11:48 AM [facility] RBC MORPHOLOGY NORMAL 02/06/2024 11:48 AM [facility] PLT MORPH. NORMAL 02/06/2024 11:48 AM [facility] WBC MORPHOLOGY NORMAL 02/06/2024 11:48 AM [facility] LYMPHOCYTES % 22.5 15.8 - 45.0 % 02/06/2024 11:48 AM [facility] NEUTROPHILS % 68.1 42.1 - 71.9 % 02/06/2024 11:48 AM [facility] MONOCYTES % 7.5 5.7 - 12.5 % 02/06/2024 11:48 AM [facility] EOSINOPHILS 1.1 0.0 - 5.6 % 02/06/2024 11:48 AM [facility] BASOPHILS 0.6 0.0 - 1.3 % 02/06/2024 11:48 AM RES HABILITATION ASSISTANT [facility] ABS. NEUTROPHILS 5.53 1.40 - 6.00 x10'3/uL 02/06/2024 11:48 AM RES HABILITATION ASSISTANT [facility] IMMATURE GRANS % 0.2 0.0 - 0.5 % 02/06/2024 11:48 AM RES HABILITATION ASSISTANT [facility] ABS. LYMPHOCYTES 1.83 0.80 - 4.70 x10'3/uL 02/06/2024 11:48 AM RES HABILITATION ASSISTANT [facility] 02/06/2024 11:4 3 AM RES HABILITATION ASSISTANT Paul Tim MD LABORATORY Final Resul t [facility] [address] [place] [address], * (ABNORMAL) TESTOSTERONE, TOTAL (02/06/2024 11:43 AM RES HABILITATION ASSISTANT) TESTOSTERONE TOTAL 173(L) 250 - 1,100 ng/dL 02/11/2024 1:03 PM RES HABILITATION ASSISTANT [facility] Comment: For additional information, please refer to http://education.[employer]/faq/ [email or web address] (This link is being provided for informational/ educational purposes only.) This test was developed and its analytical performance characteristics have been determined by [employer] [place], [place]. It has not been cleared or approved by the U.S. Food and Drug Administration. This assay has been validated pursuant to the CLIA regulations and is used for clinical purposes. Test Performed by [facility], [employer] [facility], [address] [place] [address] Glenroy Carmichael M.D., Ph.D., Director of Laboratories , CLIA [id number] 02/06/2024 11:4 3 AM RES HABILITATION ASSISTANT us Paul Tim MD LABORATORY Final Resul t [facility] [address] [place] [address], [place] [phone] * MAGNESIUM (02/06/2024 11:43 AM RES HABILITATION ASSISTANT) MAGNESIUM 2.0 1.8 - 2.4 MG/DL 02/06/2024 12:52 PM RES HABILITATION ASSISTANT [facility] 02/06/2024 11:4 3 AM RES HABILITATION ASSISTANT us Paul Tim MD LABORATORY Final Resul t Performing Organization Address City/[facility]/ZIP Co de Phone Number [facility] [address] [place] [address], [place] [phone] * FERRITIN (02/06/2024 11:43 AM RES HABILITATION ASSISTANT) FERRITIN 137.0 8.0 - 388.0 NG/ML 02/06/2024 12:52 PM RES HABILITATION ASSISTANT [facility] 02/06/2024 11:4 3 AM RES HABILITATION ASSISTANT us Paul Tim MD LABORATORY Final Resul t Performing Organization Address City/[facility]/ZIP Co de Phone Number [facility] [address] [place] [address], [place] [phone] * HEPATITIS C ANTIBODY (11/10/2020 11:20 AM CDT) HEPATITIS C AB NON-REACTI VE NON-REACTI VE 11/10/2020 8:28 PM CDT [facility] 11/10/2020 11:2 0 AM CDT us Paul Tim MD LABORATORY Final Resul t [facility] [address] [place] [address], from Last 3 Months or Most Recently Relevant to Health Maintenance Insurance [employer] OPEN ACCESS [facility] Care Teams Academic Support Director Relationship Specialty Start Date End Date None, Provider, PCP - General 08/18/18
--- OUTSIDE RECORDS SUMMARY | 2024-03-17 00:54 | XMS_ITS | Referral Summary ---
Author Organization [address] Address [address] [place] [address] Care Team Providers Care Hospital Cleaner Name Role Phone Dwayne Jones MD Primary Care Provider Allergies No known active allergies Medications dextroamphetami ne-amphetamine (ADDERALL) 20 mg tablet take 20 mg in AM and 10 mg around 1 pm 2 Active mupirocin (BACTROBAN) 2 % ointmentIndicat ions:Skin tag Apply topically 3 (three) times a day 22 g 2 Active Active Problems No known active problems Social History Tobacco Use Types Packs/Day Years Used Date Smoking Tobacco: Never Smokeless Tobacco: Never Personal Safety Answer Date Recorded Getting School Help Needed Not on file 04/09 Sex and Gender Information Value Date Recorded Sex Assigned at Not on file Legal Sex Male 8:52 AM INSTRUCTIONAL MATERIAL DIRECTOR Gender Identity Not on file Sexual Orientation Not on file Last Filed Vital Signs Vital Sign Reading [...] 10/08/2021 5:29 PM CDT Plan of Treatment Not on file Insurance [facility] [id number] Care Teams Hospital Cleaner Relationship Specialty Start Date End Date Dwayne Jones MD [address] [place] [address] PCP - General Family Medicine 03/18/21
--- OUTSIDE RECORDS SUMMARY | 2024-03-17 00:54 | XMS_ITS | Clinical Summary ---
Author Organization [facility] Care Team Providers Care Provisioning Analyst Name Role Phone Dwayne Jones Primary Care Provider [phone] Paul Tim MD Unavailable Allergies No known active allergies Medications buPROPion (WELLBUTRIN) 150 MG XL tablet Take 150 mg by mouth every morning. 4 Active Wegovy 1 MG/0.5ML Solution Auto-injector 1 mg by Subcutaneous route once a week. 4 Active Active Problems Problem Noted Date Diagnosed Date Elevated blood pressure reading 02/06/2024 Henoch Schonlein syndrome 11/10/2020 Encounters Date Type Department Care Team Description 02/27/2024 10:30 AM ELECTRICAL EXPERIMENTAL MECHANIC Office Visit [facility] [address] [place] [address] Ben Rodriguez Jr., MD Iron deficiency anemia, unspecified iron deficiency anemia type (Primary Dx) 02/27/2024 Travel 02/06/2024 11:30 AM ELECTRICAL EXPERIMENTAL MECHANIC Lab [facility] [address] [address] [place] [phone] Nurse, [facility] [place] Henoch Schonlein syndrome (HCC) (Primary Dx) 02/06/2024 10:00 AM ELECTRICAL EXPERIMENTAL MECHANIC Office Visit [facility] [address] [address] [place] [phone] Paul Tim MD Henoch Schonlein syndrome (HCC) (Primary Dx); Iron deficiency anemia, unspecified iron deficiency anemia type 02/06/2024 Travel 01/23/2024 Telephone [facility] [address] [address] Paul Tim MD from Last 3 Months Immunizations Immunization Administration Dates Next Due Covid-19 Vaccine, Vector-nr, Rs-ad26, Pf, 0.5 Ml ([employer]) 01/10/2021 Covid-19, Mrna, Lnp-s, Pf, 1 00 Mcg Or 50 Mcg Dose (MODERNA) 05/05/2021,03/21/2021 DTP Vaccine 04/21/1992, 2,03/26/1991,1990 Hib Vaccine,unspecified Formulation 01/18,06/04/1991,03/26/1991,1990 MMR Vaccine 02/04/1992 OPV 04/21/1992, 2,03/26/1991,1990 Family History Medical History Relation Name Comments Heart Disease Father Relation Name Status Comments Brother Alive Father Alive Mother Alive polycythemia ve ra Sister Alive Social History Tobacco Use Types Packs/Day Years Used Date Smoking Tobacco: Never Smokeless Tobacco: Never Tobacco Cessation:Counseling Given: No Alcohol Use Standard Drinks/Week Comments Not Currently [...] Sign Reading Time Taken Comments Blood Pressure 110/84 02/27/2024 10:40 AM ELECTRICAL EXPERIMENTAL MECHANIC Pulse 77 02/27/2024 10:40 AM ELECTRICAL EXPERIMENTAL MECHANIC Temperature 36.6 ??C (97.8 ??F) 02/27/2024 10:[address] Respiratory Rate 16 02/06/2024 10:19 AM ELECTRICAL EXPERIMENTAL MECHANIC Oxygen Saturation 98% 02/27/2024 10:40 AM ELECTRICAL EXPERIMENTAL MECHANIC Inhaled Oxygen Concentration - - Weight 122 kg (269 lb) 02/27/2024 10:40 AM ELECTRICAL EXPERIMENTAL MECHANIC Height 175.3 cm (5' 9 ) 02/27/2024 10:40 AM ELECTRICAL EXPERIMENTAL MECHANIC Body Mass Index 39.72 02/27/2024 10:40 AM ELECTRICAL EXPERIMENTAL MECHANIC Plan of Treatment Upcoming Encounters Date Type Department Care Team (Late st Contact Info) Description 12/17/2024 11:00 AM CDT Office Visit [facility] [address] [place] [address] Ben Rodriguez Jr., MD [address] [facility] [address] [place] [address] Health Maintenance Due Date Last Done Comments DTaP/Tdap/Td Immunization (5 - Tdap) 1997 04/21/1992, 06/04/1991, 03/26/1991, Additional history exists Hepatitis B Immunization (1 of 3 - 19+ 3-dose series) 2009 Influenza Immunization (#1) 2023 SARS-COV-2 Immunization ( - 2023-25 season) 2023 05/05/2021, 03/21/2021, 01/10/2021 Respiratory Syncytial Virus (RSV) Immunization (Adult) (1 - 1-dose 75+ series) 2065 Hepatitis C Virus (HCV) Screening Completed 11/10/2020, 09/17/2018 Meningococcal Immunization (ACWY) Aged Out No longer eligible based on patient's age to complete this topic Pneumococcal Immunization Combined Aged Out No longer eligible based on patient's age to complete this topic Rotavirus Immunization Aged Out No lo nger eligible based on patient's age to complete this topic Insurance [facility] OAP Care Teams Provisioning Analyst Relationship Specialty Start Date End Date Dwayne Jones [address] [place] [address] PCP - General Family Medicine 10/19/20 Paul Tim MD [address] [place] [address] Consulting Physician Oncology 10/19/20
--- OUTSIDE RECORDS SUMMARY | 2024-03-17 00:54 | XMS_ITS | Referral Summary ---
Author Organization [facility] Address [address] [place] [address] Care Team Providers Care Cheese Maker Name Role Phone Dwayne Jones MD Primary Care Provider [phone] Source Comments [facility],non-owned Affiliates and Associated Physician Practices is amultiple site organization consisting of ambulatory clinics and hospital sitesin [place], [place], [place] and [place]. This disclosure is being madepursuant to the Care Everywhere program and may not contain all information available regarding this patient. Last updated 17.[facility] [employer] Social History Tobacco Use Types Packs/Day Years Used Date Smoking Tobacco: Never Assessed Sex and Gender Information Value Date Recorded Sex Assigned at Not on file Gender Identity Not on file Sexual Orientation Not on file Plan of Treatment Not on file Care Teams Cheese Maker Relationship Specialty Start Date End Date Dwayne Jones MD PCP - General 08/24/20
--- OUTSIDE RECORDS SUMMARY | 2024-03-17 00:54 | XMS_ITS | Patient Health Summary ---
Author Organization [facility] Address [address] [place] [address] Care Team Providers Care Shovel Loader Operator Name Role Phone Dwayne Jones MD Primary Care Provider [phone] Note from [facility],non-owned Affiliates and Associated Physician Practices is amultiple site organization consisting of ambulatory clinics and hospital sitesin [place], [place], [place] and [place]. This disclosure is being madepursuant to the Care Everywhere program and may not contain all information available regarding this patient. Last updated 17.[facility] Social History Tobacco Use Types Packs/Day Years Used Date Smoking Tobacco: Never Assessed Sex and Gender Information Value Date Recorded Sex Assigned at Not on file Gender Identity Not on file Sexual Orientation Not on file Care Teams Shovel Loader Operator Relationship Specialty Start Date End Date Dwayne Jones MD PCP - General 08/24/20
--- OUTSIDE RECORDS SUMMARY | 2024-03-17 00:54 | XMS_ITS | Encounter Summary ---
Author Organization [facility] Address [address] [place] [address] Phone Care Team Providers Care Press Machine Feeder Name Role Phone Dwayne Jones Primary Care Provider [phone] Paul Tim MD Unavailable Encounter Details Date Type Department Care Team (Late st Contact Info) Description 12/22/2020 Telephone [facility] [address] [address] Paul Tim MD [address] [place] [phone] Social History Tobacco Use Types Packs/Day Years Used Date Smoking Tobacco: Never Smokeless Tobacco: Never Alcohol Use Standard Drinks/Week Comments Not Currently 0 (1 standard drink = 0.6 oz pur e alcohol) PHQ-2 Answer Date Recorded Total Score - Questions 1-9 0 100 08/2020 Sexually Active Control Partners Comments Not Currently Sex and Gender Information Value Date Recorded Sex Assigned at Not on file Legal Sex Male 7:47 AM CDT Gender Identity Not on file Sexual Orientation Not on file COVID-19 Exposure Response Date Recorded In the last month, have you been in contact with someone who was confirmed or suspected to have Coronavirus / COVID-19? No / Unsure 11/24/2020 10:08 AM CDT documented as of this encounter Miscellaneous Notes * Telephone Encounter - Abiola Gaines - 12/22/2020 10:58 AM CDT SPOKE TO PT AND HE AND THE DERM OFFICE KEEP PLAYING PHONE TAG IN ORDER TO GET SCHEDULED. I GAVE THENUMBER AGAIN TO THE PT AND HE STATED HE WILL CALL TODAY TO TRY TO GET SCHEDULED. documented in this encounter Plan of Treatment Upcoming Encounters Date Type Department Care Team (Late st Contact Info) Description 12/17/2024 11:00 AM CDT Office Visit [facility] [address] [place] [id number] Ben Rodriguez Jr., MD [address] [facility] [address] [place] [address] documented as of this encounter Visit Diagnoses Not on filedocumented in this encounter Additional Health Concerns Assessment Noted Time PHQ-9 Depression Total Score: 0 11/25/19 21 10:19 AM CDT documented as of this encounter Care Teams Press Machine Feeder Relationship Specialty Start Date End Date Dwayne Jones [address] [place] [address] PCP - General Family Medicine 10/19/20 Paul Tim MD [address] [place] [address] Consulting Physician Oncology 10/19/20 documented as of this encounter
--- OUTSIDE RECORDS SUMMARY | 2024-03-17 00:54 | XMS_ITS | Clinical Summary ---
Author Organization [facility] Address [address] [place] [address] Care Team Providers Care Crew Person Name Role Phone Dwayne Jones MD Primary Care Provider [phone] Source Comments [facility],non-owned Affiliates and Associated Physician Practices is amultiple site organization consisting of ambulatory clinics and hospital sitesin [place], [place], [place] and [place]. This disclosure is being madepursuant to the Care Everywhere program and may not contain all information available regarding this patient. Last updated 17.[facility] Social History Tobacco Use Types Packs/Day Years Used Date Smoking Tobacco: Never Assessed Sex and Gender Information Value Date Recorded Sex Assigned at Not on file Gender Identity Not on file Sexual Orientation Not on file Plan of Treatment Health Maintenance Due Date Last Done Comments HIV SCREENING 2005 HEPATITIS C SCREENING 10/27/2008 DTAP/TDAP/TD VACCINES (1 - Tdap) 2009 HEPATITIS B VACCINE (1 of 3 - 19+ 3-dose series) 2009 COVID-19 VACCINE (1 - 2023-2 5 season) 2023 INFLUENZA VACCINE (#1) 2023 DEPRESSION SCREENING 02/19/2024 ZOSTER VACCINE (1 of 2) 2040 HIB VACCINE Aged Out No longer eligi ble based on patient's age to complete this topic HPV VACCINE Aged Out No longer eligi ble based on patient's age to complete this topic MENINGOCOCCAL (Group B) VACCINE Aged Out No longer eligible based on patient's age to complete this topic MENINGOCOCCAL VACCINE Aged Out No robert ca eligible based on patient's age to complete this topic PNEUMOCOCCAL VACCINE Aged Out No long er eligible based on patient's age to complete this topic Care Teams Crew Person Relationship Specialty Start Date End Date Dwayne Jones MD PCP - General 08/24/20
--- NOTE | 2024-03-17 10:49 | WPDANESEPPF ---
Anes - Initial Pre Proc Eval Procedure: Operation Date: 03/17/24 11:30 Proposed Procedures p Esophagogastroduodenoscopy & Colonoscopy - Stephen Fuller MD Date/Time: 03/17/24 10:49 Surgeon: Stephen Fuller MD Pre Op Diagnosis: Iron deficiency anemia Patient Data Age: 33 Gender: M Height: 1.75 m Weight: 120.2 kg Allergies Allergy/AdvReac Type Severity Reaction Status Date / Time No Known Allergies Allergy Verified 03/10/24 15:27 Home Medications ?Medication ?Instructions ?Recorded ?Confirmed ?Type dextroamphetamine-amphetamine 20 20 mg PO DAILY 11/07/21 03/10/24 History mg tablet (Adderall) pantoprazole 40 mg granules 40 mg PO DAILY 11/07/21 03/10/24 History delayed-release for susp in packet (Protonix) multivitamin with minerals-folic 1 tablet PO DAILY 11/20/21 03/10/24 History acid 0.4 mg tablet ibuprofen 600 mg tablet 600 mg PO Q6H PRN pain #60 tabs 03/09/23 03/10/24 Rx ondansetron 4 mg disintegrating 4 mg PO Q8H PRN nausea and 03/09/23 03/10/24 Rx tablet vomiting #10 tabs tamsulosin 0.4 mg capsule (Flomax) 0.4 mg PO DAILY 3 days #3 caps 03/09/23 03/10/24 Rx semaglutide (weight loss) 0.25 0.25 mg subcut WEEKLY 03/10/24 03/10/24 History mg/0.5 mL subcutaneous pen injector (Wegovy) Patient hx anesthesia problems: none Family hx anesthesia problems: none Results Review: All pre-operative results and documents have been reviewed as part of the pre-operative evaluation. [facility] Past Medical History Medical History (Updated 03/17/24 @ 10:50 by Humberto Taylor DO) ELIGIO (obstructive sleep apnea) ADD (attention deficit disorder) GERD (gastroesophageal reflux disease) Surgical History Surgical History (Updated 12/13/21 @ 08:49 by Abiola Sawyer) H/O excision of epidermal inclusion cyst 11/29/2021 Family History Family History Other Carcinoma of colon Social History Social History Smoking status: Never smoker Second hand tobacco smoke exposure: No Alcohol intake: never Substance use: never Substance use type: does not use Living arrangements: with friend(s) Spiritual care concerns: No Anes - Eval Final PreProcedure Day of Procedure 03/17/24 10:49 Patient weight: obese Heart: regular rate and rhythm Lungs: clear to auscultation Airway: Mallampati scale class II Neurological: alert and oriented Last oral intake: >/= 8 hours ASA classification: III Emergent: no Anesthetic plan: proceed Anesthesia type and monitoring: general GIVS and standard monitoring Results Review: All pre-operative results and documents have been reviewed as part of the pre-operative evaluation. Informed Consent: The patient's anesthetic plan and its attendant risks and benefits were discussed with the patient/family/POA. Questions were solicited and answers provided to the satisfaction of the patient/family/POA.
[2024-03-17 10:54] VITALS: BP 133/76; PULSE 91; RESP 18; TEMP 36.1; O2SAT 100
[2024-03-17] MEDS: LACTATED RINGERS 1,000 ML 150 ML IV CONT (11:18)
--- NOTE | 2024-03-17 11:49 | PM.HPGS ---
History of Present Illness History of Present Illness Consent: Risks, benefits, and alternatives have been discussed and questions answered. Patient agrees to proceed with procedure. Chief complaint: Iron deficiency anemia Narrative: Eduardo Jackson is a 33 year old male here for first egd and colonoscopy, h/o gerd not taking medication other than tums as needed, father had colon cancer Review of Systems Review of Systems: All systems reviewed & are unremarkable except as noted in HPI and below PMFSH Past Medical History Medical History (Updated 03/17/24 @ 11:49 by Stephen Fuller MD) Family history of colon cancer in father ELIGIO (obstructive sleep apnea) ADD (attention deficit disorder) GERD (gastroesophageal reflux disease) Surgical History Surgical History (Updated 12/13/21 @ 08:49 by Abiola Sawyer) H/O excision of epidermal inclusion cyst 11/29/2021 Family History Family History Other Carcinoma of colon Social History Social History Smoking status: Never smoker Second hand tobacco smoke exposure: No Alcohol intake: never Substance use: never Substance use type: does not use Living arrangements: with friend(s) Spiritual care concerns: No Meds Home Medications and Allergies Home Medications ?Medication ?Instructions ?Recorded ?Confirmed ?Type dextroamphetamine-amphetamine 20 20 mg PO DAILY 11/07/21 03/17/24 History mg tablet (Adderall) pantoprazole 40 mg granules 40 mg PO DAILY 11/07/21 03/17/24 History delayed-release for susp in packet (Protonix) multivitamin with minerals-folic 1 tablet PO DAILY 11/20/21 03/17/24 History acid 0.4 mg tablet ibuprofen 600 mg tablet 600 mg PO Q6H PRN pain #60 tabs 03/09/23 03/10/24 Rx ondansetron 4 mg disintegrating 4 mg PO Q8H PRN nausea and 03/09/23 03/10/24 Rx tablet vomiting #10 tabs tamsulosin 0.4 mg capsule (Flomax) 0.4 mg PO DAILY 3 days #3 caps 03/09/23 03/10/24 Rx semaglutide (weight loss) 0.25 0.25 mg subcut WEEKLY 03/10/24 03/10/24 History mg/0.5 mL subcutaneous pen injector (Wegovy) Allergies Allergy/AdvReac Type Severity Reaction Status Date / Time No Known Allergies Allergy Verified 03/17/24 10:52 Vital Signs Vital Signs - 24 hr 03/17/24 10:54 Temperature 97 F L Pulse Rate 91 Respiratory Rate 18 Blood Pressure 133/76 Pulse Oximetry 100 Oxygen Delivery Room Air Exam Const: General: comfortable and no acute distress HENMT: Face/Nose/Sinus: Normal nares present Eyes: General: appearance normal, both eyes and all related structures Neck: Neck: no JVD Resp: Auscultation: clear to auscultation bilaterally Cardio: Rate: regular rate Rhythm: regular rhythm GI: Inspection: non-distended GI Palp: Yes Soft to palpation Skin: General skin exam: normal color Neuro: General: gait normal Speech: normal speech Extrem: General: normal to inspection Psych: Mental Status: mental status grossly normal Assessment and Plan Assessment and plan (1) GERD (gastroesophageal reflux disease): Code(s): K21.9 - Gastro-esophageal reflux disease without esophagitis Status: Acute Assessment and Plan: egd with bx (2) Family history of colon cancer in father: Code(s): Z80.0 - Family history of malignant neoplasm of digestive organs Status: Acute Assessment and Plan: colonoscopy
[2024-03-17] MEDS: BENZOCAINE (*SP) 60 ML SPRAY CAN (HURRICAINE) 1 SPRAY MUCOUS MEM (11:55)
--- NOTE | 2024-03-17 12:03 | SUR.OPER ---
EGD start 1156 end 1158, Colonoscopy start 1203
[2024-03-17 12:16] VITALS: BP 110/72; PULSE 94; RESP 14; O2SAT 99
[2024-03-17 12:26] VITALS: BP 121/53; PULSE 91; RESP 15; O2SAT 100
[2024-03-17 12:36] VITALS: BP 127/55; PULSE 90; RESP 19; O2SAT 100
== END 2024-03-17 12:43 | disposition home or self-care (01) ==
PROVIDERS: PCP Emergency Medicine; Visit Provider Internal Medicine Gastroenterology
PROC: 0DJ08ZZ Inspection of Upper Intestinal Tract, Via Natural or Artificial Opening Endoscopic (ICD-10-PCS; CPT 45378; principal; 2024-03-17 11:30)
DX: D50.9 Iron deficiency anemia, unspecified (principal); K64.8 Other hemorrhoids; K21.9 Gastro-esophageal reflux disease without esophagitis; Z80.0 Family history of malignant neoplasm of digestive organs; E66.9 Obesity, unspecified; Z68.39 Body mass index [BMI] 39.0-39.9, adult
CPT/HCPCS: 45378; 43239; 88305; J2003; J2704; J7120